=== PATIENT | female | born 2000 | race Caucasian/White ===

== ENCOUNTER → 2021-09-22 | Outpatient (CLI) | payer OTHER ==
--- NOTE | 2021-09-23 13:09 | RAD ---
US OB <14 WKS +TV History: Reason: unsure dates / Spl. Instructions: / History: Comparison: None. Technique: Grayscale and color Doppler imaging of the pelvis was performed using transabdominal techn ique. Findings: The uterus measures 11.0 x 7.0 x 6.0 cm. Single intrauterine gestational sac with regular appearance. Yolk sac is identified. pole is id entified with crown-rump length 0.35 cm. Estimated gestational age by ultrasound 6 weeks 0 days. Feta l heart rate 112 bpm. No perigestational fluid collection. Right ovary measures 3.0 x 1.9 x 2.0 cm. Left ovary measures 4.4 x 2.6 x 2.7 cm. Dominant right ovarian follicle measures 2.5 x 2.1 cm. Normal Doppler flow to the ovaries bilaterally. IMPRESSION: 1. Single intrauterine with gestational age 6 weeks 0 days and heart rate 112 bpm. R ecommend routine anatomic screening at 18-22 weeks. Electronically signed by: Stephan Rodriguze DO (09/23/2021 1:06 PM) [facility]
== END ==
LOC: US 14:43
PROVIDERS: ATTEND Obstetrics & Gynecology
DX: O09.71 Supervision of high risk pregnancy due to social problems, first trimester (principal); Z3A.01 Less than 8 weeks gestation of pregnancy
CPT/HCPCS: 76801